=== PATIENT | female | born 1995 | race Caucasian/White ===

== ENCOUNTER 2018-06-05 13:46 | Emergency (ER) | payer MEDICAID ==
[~2018-06-05] VITALS: Ht 162.6 cm; Wt 98.9 kg
[~2018-06-05 13:46] MED LIST: CLON1 PO; Klonopin1 MG PO; LITH300C PO; LITH300ER PO; OLAN10A MM; OXCA300 PO; QUET200 PO; Seroquel50 MG PO; Zyprexa10 MG PO
[2018-06-05] MEDS ORDERED: AMIT50 PO (14:34)
[2018-06-05] MEDS ORDERED: ALPR1 PO (14:35)
[2018-06-05] MEDS ORDERED: CLARITIN10 MG PO (15:03)
[2018-06-05] MEDS ORDERED: Prednisone20 MG PO (15:03)
[2018-06-05] MEDS ORDERED: FAMO40 PO (15:03)
== END 2018-06-05 15:10 | disposition home or self-care (01) ==
LOC: ER 13:46
DX: T78.01XA Anaphylactic reaction due to peanuts, initial encounter (principal); J45.909 Unspecified asthma, uncomplicated; F17.200 Nicotine dependence, unspecified, uncomplicated; Z88.2 Allergy status to sulfonamides; Z88.1 Allergy status to other antibiotic agents; Z79.899 Other long term (current) drug therapy
CPT/HCPCS: 36415; 96374; 96375; 99283-25; J1100; J1885; J3490

== ENCOUNTER 2019-12-18 06:33 | Observation (INO) | payer MEDICARE ==
[~2019-12-18] VITALS: Ht 165.1 cm; Wt 77.1 kg
[~2019-12-18 06:33] MED LIST changes: +ALPR1 PO; +AMIT50 PO; +Amitriptyline H50 MG PO; +CLARITIN10 MG PO; +FAMO40 PO; +HYDPAM50 PO; +Lithium Carbon600 MG PO; +Prednisone20 MG PO; +Trileptal600 MG PO; +Vistaril50 MG PO; +Xanax1 MG PO
[2019-12-18 07:12] LABS: BASOPHILS ABSOLUTE AUTO 0.02 K/mm3 (0.00-0.23); BASOPHILS PERCENT AUTO 0 % (0-2); EOSINOPHILS ABSOLUTE AUTO 0.07 K/mm3 (0.00-0.68); EOSINOPHILS PERCENT AUTO 1 % (0-6); Hematocrit 45.7 % (33.0-51.0); Hemoglobin 15.3 g/dL (11.5-16.0); IMMATURE GRAN ABSOLUTE AUTO 0.02 K/mm3 (0.00-0.10); IMMATURE GRAN PERCENT AUTO 0 % (0-1); LYMPHOCYTES ABSOLUTE AUTO 2.62 K/mm3 (0.84-5.20); LYMPHOCYTES PERCENT AUTO 29 % (21-46); MONOCYTES ABSOLUTE AUTO 0.78 K/mm3 (0.16-1.47); MONOCYTES PERCENT AUTO 9 % (4-13); Mean Corpuscular HGB 31.4 pg (26.0-34.0); Mean Corpuscular HGB Conc 33.5 g/dL (31.5-36.5); Mean Corpuscular Volume 94 fL (80-100); NEUTROPHILS ABSOLUTE AUTO 5.64 K/mm3 (1.96-9.15); NEUTROPHILS PERCENT AUTO 62 % (41-73); Platelet Count 294 K/mm3 (150-400); RDW Coefficient Variation 13.1 % (11.7-14.2); RDW Standard Deviation 44.2 fL (35.1-46.3); Red Blood Cell Count 4.88 M/mm3 (3.80-5.20); White Blood Cell Count 9.15 K/mm3 (4.00-11.30)
[2019-12-18 07:21] LABS: U Amphetamine Screen Not Detected; U Barbituate Screen Not Detected; U Benzodiazapine Screen Not Detected; U Buprenorphine Screen Not Detected; U Cannabinoids Screen DETECTED; U Cocaine Screen Not Detected; U Methadone Screen Not Detected; U Methamphetamine Screen Not Detected; U Opiates Screen Not Detected; U Oxycodone Screen Not Detected; U Phencyclidine Screen Not Detected; U Propoxyphene Screen Not Detected
[2019-12-18 07:36] LABS: Alanine Aminotransfer (ALT/SGP 93 U/L (12-78); Albumin, Blood 3.8 g/dL (3.4-5.0); Albumin/Globulin Ratio 0.8 (0.8-1.8); Alk Phos 116 U/L (50-136); Anion Gap 6 mmol/L (6-16); Aspartate Aminotrans (AST/SGOT 57 U/L (12-37); Bilirubin, Total 0.3 mg/dL (0.1-1.0); Blood Urea Nitrogen 9 mg/dL (8-24); CO2, Blood 27 mmol/L (21-32); Calcium, Blood 9.1 mg/dL (8.5-10.1); Chloride, Blood 109 mmol/L (98-108); Globulin, Blood 4.8 g/dL (2.2-4.0); Glomerular Filtration Rate >60 (60-); Glucose, Blood 97 mg/dL (70-99); Sodium, Blood 142 mmol/L (136-145); Total Protein, Blood 8.6 g/dL (6.4-8.2)
[2019-12-18 07:38] LABS: Lithium <0.20 mmol/L (0.60-1.20)
[2019-12-18 10:07] LABS: Source, Urine Clean Catch
[2019-12-18 10:30] LABS: Ethanol (Alcohol), Blood, Med 206 mg/dL; Salicylate 1.7 mg/dL (2.8-20.0); Thyroxine (T4) 13.4 ug/dL (4.8-13.9)
[2019-12-18 10:36] LABS: Acetaminophen, Random <2.0 ug/mL (10.0-30.0)
[2019-12-18 10:41] LABS: Bilirubin, Urine Neg (Neg); Blood, Urine Neg (Neg); Glucose Qualitative, Urine Neg (Neg); Ketones, Urine Neg (Neg); Leukocyte Esterase, Urine Neg (Neg); Nitrite, Urine Neg (Neg); Protein, Urine 1+ (Neg); Specific Gravity, Urine 1.015 (1.003-1.022); Urobilinogen, Urine NORM (Normal)
[2019-12-18 10:47] LABS: Appearance, Urine Clear (Clear); Color, Urine Yellow (P-Yellow)
== END 2019-12-19 13:35 | disposition home or self-care (01) ==
LOC: ER 06:33 → EOR 06:34
PROVIDERS: Emergency Medicine; ADMIT Emergency Medicine
DX: F30.9 Manic episode, unspecified (principal); F25.9 Schizoaffective disorder, unspecified; F17.200 Nicotine dependence, unspecified, uncomplicated; Z91.14 Patient's other noncompliance with medication regimen; Z91.038 Other insect allergy status; Z91.010 Allergy to peanuts; Z88.2 Allergy status to sulfonamides; Z79.899 Other long term (current) drug therapy; Z88.8 Allergy status to other drugs, medicaments and biological substances
CPT/HCPCS: 36415; 80053; 80178; 81025; 84436; 84443; 85025; 96372; 99285-25; A9270; G0378; G0480; Q3014

== ENCOUNTER 2022-01-08 02:11 | Emergency (ER) | payer MEDICARE ==
[~2022-01-08] VITALS: Ht 167.6 cm; Wt 77.1 kg
[2022-01-08 03:01] LABS: Source, Urine Clean Catch
[2022-01-08 03:13] LABS: Bilirubin, Urine Neg (Neg); Blood, Urine Neg (Neg); Glucose Qualitative, Urine Neg (Neg); Ketones, Urine Neg (Neg); Leukocyte Esterase, Urine Neg (Neg); Nitrite, Urine Neg (Neg); Protein, Urine Neg (Neg); Urobilinogen, Urine NORM (Normal)
[2022-01-08 03:22] LABS: Appearance, Urine Clear (Clear); Color, Urine Yellow (P-Yellow)
[2022-01-08 03:34] LABS: U Amphetamine Screen Not Detected; U Barbituate Screen Not Detected; U Benzodiazapine Screen Not Detected; U Buprenorphine Screen Not Detected; U Cannabinoids Screen DETECTED; U Cocaine Screen Not Detected; U Methadone Screen Not Detected; U Methamphetamine Screen Not Detected; U Opiates Screen DETECTED; U Oxycodone Screen Not Detected; U Phencyclidine Screen Not Detected; U Propoxyphene Screen Not Detected
[2022-01-08 04:14] LABS: BASOPHILS ABSOLUTE AUTO 0.01 K/mm3 (0.00-0.23); BASOPHILS PERCENT AUTO 0 % (0-2); EOSINOPHILS ABSOLUTE AUTO 0.02 K/mm3 (0.00-0.68); EOSINOPHILS PERCENT AUTO 0 % (0-6); Hematocrit 41.5 % (33.0-51.0); IMMATURE GRAN ABSOLUTE AUTO 0.01 K/mm3 (0.00-0.10); IMMATURE GRAN PERCENT AUTO 0 % (0-1); LYMPHOCYTES ABSOLUTE AUTO 1.61 K/mm3 (0.84-5.20); LYMPHOCYTES PERCENT AUTO 30 % (21-46); MONOCYTES PERCENT AUTO 8 % (4-13); Mean Corpuscular HGB 30.8 pg (26.0-34.0); Mean Corpuscular HGB Conc 33.7 g/dL (31.5-36.5); Mean Corpuscular Volume 91 fL (80-100); Mean Platelet Volume 9.8 fL (9.1-12.4); NEUTROPHILS ABSOLUTE AUTO 3.29 K/mm3 (1.96-9.15); NEUTROPHILS PERCENT AUTO 62 % (41-73); Platelet Count 300 K/mm3 (150-400); RDW Coefficient Variation 12.6 % (11.7-14.2); RDW Standard Deviation 41.8 fL (35.1-46.3); Red Blood Cell Count 4.54 M/mm3 (3.80-5.20); White Blood Cell Count 5.34 K/mm3 (4.00-11.30)
[2022-01-08 04:32] LABS: Acetaminophen, Random <2.0 ug/mL (10.0-30.0); Alanine Aminotransfer (ALT/SGP 70 U/L (12-78); Albumin, Blood 3.8 g/dL (3.4-5.0); Albumin/Globulin Ratio 0.9 (0.8-1.8); Alk Phos 75 U/L (50-136); Anion Gap 10 mmol/L (6-16); Aspartate Aminotrans (AST/SGOT 29 U/L (12-37); Bilirubin, Total 0.1 mg/dL (0.1-1.0); Blood Urea Nitrogen 7 mg/dL (8-24); Bun/Creatinine Ratio 13.4 (12.0-20.0); CO2, Blood 23 mmol/L (21-32); Chloride, Blood 112 mmol/L (98-108); Creatinine, Blood 0.52 mg/dL (0.40-1.00); Ethanol (Alcohol), Blood, Med 223 mg/dL; Globulin, Blood 4.4 g/dL (2.2-4.0); Glomerular Filtration Rate >60 (60-); Glucose, Blood 107 mg/dL (70-99); Potassium, Blood 3.7 mmol/L (3.5-5.5); Salicylate 1.9 mg/dL (2.8-20.0); Sodium, Blood 145 mmol/L (136-145); Total Protein, Blood 8.2 g/dL (6.4-8.2)
[2022-01-08] MEDS ORDERED: HYDROCODONE-AC1 EAC5 PO (05:33)
[2022-01-08] MEDS ORDERED: AMOX-CLAV 500-1 EAC5 PO (05:33)
== END 2022-01-08 11:24 | disposition home or self-care (01) ==
LOC: ER 02:11
PROVIDERS: Student in an Organized Health Care Education/Training Program
DX: F10.129 Alcohol abuse with intoxication, unspecified (principal); R45.851 Suicidal ideations; Z91.010 Allergy to peanuts; F17.200 Nicotine dependence, unspecified, uncomplicated; Z79.899 Other long term (current) drug therapy; Z88.8 Allergy status to other drugs, medicaments and biological substances
CPT/HCPCS: 80053; 81003; 81025; 85025; 93005; 93010; 99285-25; A9270; G0480

== ENCOUNTER 2022-07-22 23:55 | Observation (INO) | payer MEDICARE ==
[~2022-07-22] VITALS: Ht 167.6 cm; Wt 77.1 kg
[~2022-07-22 23:55] MED LIST changes: +AMOX-CLAV 500-1 EAC5 PO; +HYDROCODONE-AC1 EAC5 PO
[2022-07-23 00:37] LABS: BASOPHILS ABSOLUTE AUTO 0.01 K/mm3 (0.00-0.23); BASOPHILS PERCENT AUTO 0 % (0-2); EOSINOPHILS ABSOLUTE AUTO 0.04 K/mm3 (0.00-0.68); EOSINOPHILS PERCENT AUTO 1 % (0-6); Hematocrit 42.7 % (33.0-51.0); Hemoglobin 14.8 g/dL (11.5-16.0); IMMATURE GRAN ABSOLUTE AUTO 0.01 K/mm3 (0.00-0.10); IMMATURE GRAN PERCENT AUTO 0 % (0-1); LYMPHOCYTES PERCENT AUTO 44 % (21-46); MONOCYTES ABSOLUTE AUTO 0.37 K/mm3 (0.16-1.47); MONOCYTES PERCENT AUTO 7 % (4-13); Mean Corpuscular HGB 31.8 pg (26.0-34.0); Mean Corpuscular HGB Conc 34.7 g/dL (31.5-36.5); Mean Corpuscular Volume 92 fL (80-100); NEUTROPHILS ABSOLUTE AUTO 2.61 K/mm3 (1.96-9.15); NEUTROPHILS PERCENT AUTO 48 % (41-73); Platelet Count 286 K/mm3 (150-400); RDW Coefficient Variation 12.5 % (11.7-14.2); RDW Standard Deviation 42.3 fL (35.1-46.3); Red Blood Cell Count 4.65 M/mm3 (3.80-5.20); White Blood Cell Count 5.44 K/mm3 (4.00-11.30)
[2022-07-23 00:46] LABS: Source, Urine Clean Catch
[2022-07-23 00:48] LABS: Bilirubin, Urine Neg (Neg); Blood, Urine Neg (Neg); Glucose Qualitative, Urine Neg (Neg); Ketones, Urine Neg (Neg); Leukocyte Esterase, Urine Neg (Neg); Nitrite, Urine Neg (Neg); Protein, Urine Neg (Neg); Urobilinogen, Urine NORM (Normal)
[2022-07-23 00:49] LABS: Appearance, Urine Clear (Clear); Color, Urine Pale Yellow (P-Yellow)
[2022-07-23 00:56] LABS: Salicylate <1.7 mg/dL (2.8-20.0)
[2022-07-23 01:01] LABS: Ethanol (Alcohol), Blood, Med 287 mg/dL
[2022-07-23 01:13] LABS: Acetaminophen, Random <2.0 ug/mL (10.0-30.0); Alanine Aminotransfer (ALT/SGP 106 U/L (12-78); Albumin, Blood 3.7 g/dL (3.4-5.0); Albumin/Globulin Ratio 0.9 (0.8-1.8); Alk Phos 94 U/L (50-136); Anion Gap 6 mmol/L (6-16); Aspartate Aminotrans (AST/SGOT 64 U/L (12-37); Bilirubin, Total <0.1 mg/dL (0.1-1.0); Blood Urea Nitrogen 10 mg/dL (8-24); Bun/Creatinine Ratio 18.2 (12.0-20.0); CO2, Blood 26 mmol/L (21-32); Calcium, Blood 8.9 mg/dL (8.5-10.1); Chloride, Blood 113 mmol/L (98-108); Creatinine, Blood 0.55 mg/dL (0.40-1.00); Globulin, Blood 4.2 g/dL (2.2-4.0); Glomerular Filtration Rate 130 (60-); Glucose, Blood 103 mg/dL (70-99); Potassium, Blood 3.7 mmol/L (3.5-5.5); Sodium, Blood 145 mmol/L (136-145); Total Protein, Blood 7.9 g/dL (6.4-8.2)
[2022-07-23 01:14] LABS: U Amphetamine Screen Not Detected; U Barbituate Screen Not Detected; U Benzodiazapine Screen Not Detected; U Buprenorphine Screen Not Detected; U Cannabinoids Screen DETECTED; U Cocaine Screen Not Detected; U Methadone Screen Not Detected; U Methamphetamine Screen Not Detected; U Opiates Screen Not Detected; U Oxycodone Screen Not Detected; U Phencyclidine Screen Not Detected; U Propoxyphene Screen Not Detected
[2022-07-23 02:03] LABS: Influenza A, PCR NEGATIVE (NEGATIVE); Influenza B, PCR NEGATIVE (NEGATIVE); Resp Syncytial Virus, PCR NEGATIVE (NEGATIVE); SARS-Cov-2 (COVID-19) PCR, MMC NEGATIVE (NEGATIVE)
== END 2022-07-23 13:14 | disposition home or self-care (01) ==
LOC: ER 23:55 → EOR 23:56
PROVIDERS: ADMIT Emergency Medicine
DX: F31.5 Bipolar disorder, current episode depressed, severe, with psychotic features (principal); F12.10 Cannabis abuse, uncomplicated; Z20.822 Contact with and (suspected) exposure to COVID-19; Z88.2 Allergy status to sulfonamides; Z91.038 Other insect allergy status; Z91.010 Allergy to peanuts; F17.210 Nicotine dependence, cigarettes, uncomplicated; F10.129 Alcohol abuse with intoxication, unspecified
CPT/HCPCS: 0241U; 80053; 81003; 81025; 85025; 86592; G0480

== ENCOUNTER 2022-09-23 18:26 | Observation (INO) | payer MEDICARE ==
[~2022-09-23] VITALS: Ht 167.6 cm; Wt 81.7 kg
[2022-09-23 19:27] LABS: Source, Urine Clean Catch
[2022-09-23 19:42] LABS: Bilirubin, Urine Neg (Neg); Blood, Urine Neg (Neg); Glucose Qualitative, Urine Neg (Neg); Ketones, Urine Neg (Neg); Leukocyte Esterase, Urine Neg (Neg); Nitrite, Urine Neg (Neg); Protein, Urine Neg (Neg); Specific Gravity, Urine 1.015 (1.003-1.022); Urobilinogen, Urine NORM (Normal)
[2022-09-23 19:48] LABS: Color, Urine Pale Yellow (P-Yellow)
[2022-09-23 19:50] LABS: Appearance, Urine Clear (Clear)
[2022-09-23 19:53] LABS: BASOPHILS PERCENT AUTO 0 % (0-2); EOSINOPHILS ABSOLUTE AUTO 0.01 K/mm3 (0.00-0.68); EOSINOPHILS PERCENT AUTO 0 % (0-6); Hematocrit 42.5 % (33.0-51.0); Hemoglobin 14.6 g/dL (11.5-16.0); IMMATURE GRAN ABSOLUTE AUTO 0.01 K/mm3 (0.00-0.10); IMMATURE GRAN PERCENT AUTO 0 % (0-1); LYMPHOCYTES ABSOLUTE AUTO 1.83 K/mm3 (0.84-5.20); LYMPHOCYTES PERCENT AUTO 45 % (21-46); MONOCYTES ABSOLUTE AUTO 0.28 K/mm3 (0.16-1.47); MONOCYTES PERCENT AUTO 7 % (4-13); Mean Corpuscular HGB 31.8 pg (26.0-34.0); Mean Corpuscular HGB Conc 34.4 g/dL (31.5-36.5); Mean Corpuscular Volume 93 fL (80-100); Mean Platelet Volume 9.9 fL (9.1-12.4); NEUTROPHILS PERCENT AUTO 47 % (41-73); Platelet Count 263 K/mm3 (150-400); RDW Coefficient Variation 12.5 % (11.7-14.2); RDW Standard Deviation 42.5 fL (35.1-46.3); Red Blood Cell Count 4.59 M/mm3 (3.80-5.20); White Blood Cell Count 4.03 K/mm3 (4.00-11.30)
[2022-09-23 20:08] LABS: Ethanol (Alcohol), Blood, Med 236 mg/dL; Salicylate <1.7 mg/dL (2.8-20.0)
[2022-09-23 20:17] LABS: U Amphetamine Screen Not Detected; U Barbituate Screen Not Detected; U Benzodiazapine Screen Not Detected; U Buprenorphine Screen Not Detected; U Cannabinoids Screen DETECTED; U Cocaine Screen Not Detected; U Methadone Screen Not Detected; U Methamphetamine Screen Not Detected; U Opiates Screen Not Detected; U Oxycodone Screen Not Detected; U Phencyclidine Screen Not Detected; U Propoxyphene Screen Not Detected
[2022-09-23 20:20] LABS: Alanine Aminotransfer (ALT/SGP 120 U/L (12-78); Albumin, Blood 3.7 g/dL (3.4-5.0); Albumin/Globulin Ratio 0.9 (0.8-1.8); Alk Phos 80 U/L (50-136); Anion Gap 5 mmol/L (6-16); Aspartate Aminotrans (AST/SGOT 41 U/L (12-37); Bilirubin, Total <0.1 mg/dL (0.1-1.0); Blood Urea Nitrogen 8 mg/dL (8-24); Bun/Creatinine Ratio 13.5 (12.0-20.0); CO2, Blood 27 mmol/L (21-32); Calcium, Blood 8.5 mg/dL (8.5-10.1); Chloride, Blood 113 mmol/L (98-108); Creatinine, Blood 0.59 mg/dL (0.40-1.00); Globulin, Blood 4.2 g/dL (2.2-4.0); Glomerular Filtration Rate 127 (60-); Glucose, Blood 104 mg/dL (70-99); Sodium, Blood 145 mmol/L (136-145); Total Protein, Blood 7.9 g/dL (6.4-8.2)
[2022-09-23 20:48] LABS: Acetaminophen, Random <2.0 ug/mL (10.0-30.0)
[2022-09-23 21:05] LABS: Influenza A, PCR NEGATIVE (NEGATIVE); Influenza B, PCR NEGATIVE (NEGATIVE); Resp Syncytial Virus, PCR NEGATIVE (NEGATIVE); SARS-Cov-2 (COVID-19) PCR, MMC NEGATIVE (NEGATIVE)
== END 2022-09-23 19:58 | disposition left against medical advice (07) ==
LOC: ER 18:26 → EOR 18:27 → UNDODEPER 09-24 19:58
PROVIDERS: ADMIT Student in an Organized Health Care Education/Training Program
DX: F31.5 Bipolar disorder, current episode depressed, severe, with psychotic features (principal); R45.851 Suicidal ideations; Z20.822 Contact with and (suspected) exposure to COVID-19; F17.210 Nicotine dependence, cigarettes, uncomplicated
CPT/HCPCS: 0241U; 36415; 80053; 81003; 81025; 85025; 93005; 93010; 99285-25; G0378; G0480

== ENCOUNTER 2023-03-03 22:53 | Observation (INO) | payer MEDICARE ==
[~2023-03-03] VITALS: Ht 167.6 cm; Wt 81.7 kg
[2023-03-03 23:13] LABS: BASOPHILS ABSOLUTE AUTO 0.01 K/mm3 (0.00-0.23); BASOPHILS PERCENT AUTO 0 % (0-2); EOSINOPHILS ABSOLUTE AUTO 0.02 K/mm3 (0.00-0.68); EOSINOPHILS PERCENT AUTO 0 % (0-6); Hematocrit 40.6 % (33.0-51.0); Hemoglobin 14.2 g/dL (11.5-16.0); IMMATURE GRAN ABSOLUTE AUTO 0.01 K/mm3 (0.00-0.10); IMMATURE GRAN PERCENT AUTO 0 % (0-1); LYMPHOCYTES ABSOLUTE AUTO 2.33 K/mm3 (0.84-5.20); LYMPHOCYTES PERCENT AUTO 33 % (21-46); MONOCYTES ABSOLUTE AUTO 0.52 K/mm3 (0.16-1.47); MONOCYTES PERCENT AUTO 7 % (4-13); Mean Corpuscular HGB 32.3 pg (26.0-34.0); Mean Corpuscular Volume 93 fL (80-100); NEUTROPHILS ABSOLUTE AUTO 4.15 K/mm3 (1.96-9.15); NEUTROPHILS PERCENT AUTO 59 % (41-73); Platelet Count 304 K/mm3 (150-400); RDW Coefficient Variation 12.4 % (11.7-14.2); RDW Standard Deviation 42.7 fL (35.1-46.3); Red Blood Cell Count 4.39 M/mm3 (3.80-5.20); White Blood Cell Count 7.04 K/mm3 (4.00-11.30)
[2023-03-03 23:28] LABS: Ethanol (Alcohol), Blood, Med 273 mg/dL; Salicylate <1.7 mg/dL (2.8-20.0)
[2023-03-03 23:31] LABS: Acetaminophen, Random <2.0 ug/mL (10.0-30.0); Alanine Aminotransfer (ALT/SGP 62 U/L (12-78); Albumin, Blood 3.6 g/dL (3.4-5.0); Albumin/Globulin Ratio 0.8 (0.8-1.8); Alk Phos 123 U/L (50-136); Anion Gap 8 mmol/L (6-16); Aspartate Aminotrans (AST/SGOT 57 U/L (12-37); Bilirubin, Total 0.3 mg/dL (0.1-1.0); Blood Urea Nitrogen 9 mg/dL (8-24); Bun/Creatinine Ratio 14.4 (12.0-20.0); CO2, Blood 24 mmol/L (21-32); Calcium, Blood 8.8 mg/dL (8.5-10.1); Chloride, Blood 112 mmol/L (98-108); Creatinine, Blood 0.63 mg/dL (0.40-1.00); Globulin, Blood 4.4 g/dL (2.2-4.0); Glomerular Filtration Rate 125 (60-); Glucose, Blood 91 mg/dL (70-99); Potassium, Blood 4.3 mmol/L (3.5-5.5); Sodium, Blood 144 mmol/L (136-145)
[2023-03-04 00:28] LABS: Source, Urine Voided
[2023-03-04 01:00] LABS: Appearance, Urine Clear (Clear); Bilirubin, Urine Neg (Neg); Blood, Urine Neg (Neg); Color, Urine Yellow (P-Yellow); Glucose Qualitative, Urine Neg (Neg); Ketones, Urine Neg (Neg); Leukocyte Esterase, Urine Neg (Neg); Nitrite, Urine Neg (Neg); Protein, Urine Neg (Neg); Specific Gravity, Urine 1.015 (1.003-1.022); Urobilinogen, Urine NORM (Normal)
[2023-03-04 01:14] LABS: Influenza A, PCR NEGATIVE (NEGATIVE); Influenza B, PCR NEGATIVE (NEGATIVE); Resp Syncytial Virus, PCR NEGATIVE (NEGATIVE); SARS-Cov-2 (COVID-19) PCR, MMC NEGATIVE (NEGATIVE)
[2023-03-04 01:15] LABS: U Amphetamine Screen Not Detected; U Barbituate Screen Not Detected; U Benzodiazapine Screen Not Detected; U Buprenorphine Screen Not Detected; U Cannabinoids Screen DETECTED; U Cocaine Screen Not Detected; U Methadone Screen Not Detected; U Methamphetamine Screen Not Detected; U Opiates Screen Not Detected; U Oxycodone Screen Not Detected; U Phencyclidine Screen Not Detected; U Propoxyphene Screen Not Detected
[2023-03-04 19:01] VITALS: BP 117/72
== END 2023-03-05 04:08 ==
LOC: ER 22:53 → EOR 23:02
PROVIDERS: ADMIT Emergency Medicine
DX: T43.212A Poisoning by selective serotonin and norepinephrine reuptake inhibitors, intentional self-harm, initial encounter (principal); T51.0X2A Toxic effect of ethanol, intentional self-harm, initial encounter; F17.210 Nicotine dependence, cigarettes, uncomplicated; F33.3 Major depressive disorder, recurrent, severe with psychotic symptoms; F43.10 Post-traumatic stress disorder, unspecified; Z88.2 Allergy status to sulfonamides; F10.90 Alcohol use, unspecified, uncomplicated
CPT/HCPCS: 0241U; 80053; 81003; 81025; 85025; 86592; 93005; 93010; 99285-25; A9270; G0378; G0480; J7030; Q3014

== ENCOUNTER 2023-05-13 22:48 | Observation (INO) | payer MEDICARE, OTHER ==
[~2023-05-13] VITALS: Ht 167.6 cm; Wt 81.7 kg
[2023-05-13 23:31] LABS: BASOPHILS ABSOLUTE AUTO 0.01 K/mm3 (0.00-0.23); BASOPHILS PERCENT AUTO 0 % (0-2); EOSINOPHILS ABSOLUTE AUTO 0.01 K/mm3 (0.00-0.68); EOSINOPHILS PERCENT AUTO 0 % (0-6); Hematocrit 38.3 % (33.0-51.0); Hemoglobin 13.8 g/dL (11.5-16.0); IMMATURE GRAN ABSOLUTE AUTO 0.01 K/mm3 (0.00-0.10); IMMATURE GRAN PERCENT AUTO 0 % (0-1); LYMPHOCYTES ABSOLUTE AUTO 2.67 K/mm3 (0.84-5.20); LYMPHOCYTES PERCENT AUTO 44 % (21-46); MONOCYTES ABSOLUTE AUTO 0.44 K/mm3 (0.16-1.47); MONOCYTES PERCENT AUTO 7 % (4-13); Mean Corpuscular HGB 32.5 pg (26.0-34.0); Mean Corpuscular Volume 90 fL (80-100); Mean Platelet Volume 9.7 fL (9.1-12.4); NEUTROPHILS ABSOLUTE AUTO 2.92 K/mm3 (1.96-9.15); NEUTROPHILS PERCENT AUTO 48 % (41-73); Platelet Count 289 K/mm3 (150-400); RDW Coefficient Variation 11.9 % (11.7-14.2); RDW Standard Deviation 38.7 fL (35.1-46.3); Red Blood Cell Count 4.25 M/mm3 (3.80-5.20); White Blood Cell Count 6.06 K/mm3 (4.00-11.30)
[2023-05-13 23:49] LABS: U Amphetamine Screen Not Detected; U Barbituate Screen Not Detected; U Benzodiazapine Screen Not Detected; U Buprenorphine Screen Not Detected; U Cannabinoids Screen DETECTED; U Cocaine Screen Not Detected; U Methadone Screen Not Detected; U Methamphetamine Screen Not Detected; U Opiates Screen Not Detected; U Oxycodone Screen Not Detected; U Phencyclidine Screen Not Detected; U Propoxyphene Screen Not Detected
[2023-05-13 23:54] LABS: Ethanol (Alcohol), Blood, Med 265 mg/dL; Free Thyroxine 1.22 ng/dL (0.70-1.60); Salicylate <1.7 mg/dL (2.8-20.0)
[2023-05-13 23:57] LABS: Alanine Aminotransfer (ALT/SGP 59 U/L (12-78); Albumin, Blood 3.6 g/dL (3.4-5.0); Albumin/Globulin Ratio 0.8 (0.8-1.8); Alk Phos 93 U/L (50-136); Anion Gap 7 mmol/L (6-16); Aspartate Aminotrans (AST/SGOT 41 U/L (12-37); Bilirubin, Total 0.1 mg/dL (0.1-1.0); Blood Urea Nitrogen 9 mg/dL (8-24); Bun/Creatinine Ratio 14.7 (12.0-20.0); CO2, Blood 24 mmol/L (21-32); Calcium, Blood 8.9 mg/dL (8.5-10.1); Chloride, Blood 111 mmol/L (98-108); Creatinine, Blood 0.61 mg/dL (0.40-1.00); Globulin, Blood 4.3 g/dL (2.2-4.0); Glomerular Filtration Rate 126 (60-); Glucose, Blood 102 mg/dL (70-99); Potassium, Blood 3.3 mmol/L (3.5-5.5); Sodium, Blood 142 mmol/L (136-145); Total Protein, Blood 7.9 g/dL (6.4-8.2)
[2023-05-14 00:03] LABS: Acetaminophen, Random <2.0 ug/mL (10.0-30.0)
[2023-05-15 12:56] VITALS: BP 105/68
[2023-05-15] MEDS ORDERED: QUET100 PO (18:57)
[2023-05-15] MEDS ORDERED: TRAZ100 PO (18:57)
[2023-05-15] MEDS ORDERED: HYDHCL25 PO (18:57)
== END 2023-05-15 19:15 | disposition home or self-care (01) ==
LOC: ER 22:48 → EOR 22:50 → ER 05-14 00:56 → EOR 05-14 00:56
PROVIDERS: ADMIT Emergency Medicine
DX: F31.5 Bipolar disorder, current episode depressed, severe, with psychotic features (principal); F12.10 Cannabis abuse, uncomplicated; F17.210 Nicotine dependence, cigarettes, uncomplicated; Z88.1 Allergy status to other antibiotic agents
CPT/HCPCS: 12002; 80053; 81025; 84439; 84443; 85025; 96361-59; 96374-59; 99285-25; A9270; G0378; G0480; J2060; J7030; Q0177

== ENCOUNTER 2023-09-16 21:58 | Inpatient (IN) | payer MEDICARE, OTHER ==
[~2023-09-16] VITALS: Ht 167.6 cm; Wt 53.5 kg
[~2023-09-16 21:58] MED LIST changes: +HYDHCL25 PO; +QUET100 PO; +TRAZ100 PO
[2023-09-16 22:52] LABS: Hematocrit 41.6 % (33.0-51.0); Hemoglobin 14.3 g/dL (11.5-16.0); Mean Corpuscular HGB 31.4 pg (26.0-34.0); Mean Corpuscular HGB Conc 34.4 g/dL (31.5-36.5); Mean Corpuscular Volume 91 fL (80-100); Mean Platelet Volume 9.6 fL (9.1-12.4); Platelet Count 280 K/mm3 (150-400); RDW Coefficient Variation 13.4 % (11.7-14.2); RDW Standard Deviation 45.2 fL (35.1-46.3); Red Blood Cell Count 4.55 M/mm3 (3.80-5.20); White Blood Cell Count 6.02 K/mm3 (4.00-11.30)
[2023-09-16 23:10] LABS: Magnesium, Blood 2.5 mg/dL (1.6-2.4); Salicylate <1.7 mg/dL (2.8-20.0)
[2023-09-16 23:43] LABS: BASOPHILS PERCENT MAN 0 % (0-2); EOSINOPHILS PERCENT MAN 0 % (0-6); LYMPHOCYTES % ATYPICAL MANUAL 1 % (0-0); LYMPHOCYTES ABSOLUTE MAN 3.73 K/mm3 (0.84-5.20); LYMPHOCYTES PERCENT MAN 61 % (21-46); MONOCYTES ABSOLUTE MAN 0.36 K/mm3 (0.16-1.47); MONOCYTES PERCENT MAN 6 % (4-13); NEUTROPHILS ABSOLUTE MAN 1.92 K/mm3 (1.96-9.15); SEG NEUTROPHILS PERCENT MAN 32 % (41-73); TOTAL CELLS COUNTED 100
[2023-09-16 23:54] LABS: Ethanol (Alcohol), Blood, Med 294 mg/dL
[2023-09-16 23:55] LABS: Alanine Aminotransfer (ALT/SGP 60 U/L (12-78); Albumin, Blood 3.5 g/dL (3.4-5.0); Albumin/Globulin Ratio 0.8 (0.8-1.8); Alk Phos 105 U/L (50-136); Anion Gap 6 mmol/L (6-16); Aspartate Aminotrans (AST/SGOT 41 U/L (12-37); Bilirubin, Total <0.1 mg/dL (0.1-1.0); Blood Urea Nitrogen 8 mg/dL (8-24); Bun/Creatinine Ratio 11.6 (12.0-20.0); CO2, Blood 27 mmol/L (21-32); Calcium, Blood 8.6 mg/dL (8.5-10.1); Chloride, Blood 110 mmol/L (98-108); Creatinine, Blood 0.69 mg/dL (0.40-1.00); Globulin, Blood 4.6 g/dL (2.2-4.0); Glomerular Filtration Rate 121 (60-); Glucose, Blood 103 mg/dL (70-99); Potassium, Blood 3.7 mmol/L (3.5-5.5); Sodium, Blood 143 mmol/L (136-145); Total Protein, Blood 8.1 g/dL (6.4-8.2)
[2023-09-16 23:56] LABS: Acetaminophen, Random <2.0 ug/mL (10.0-30.0)
[2023-09-17] VITALS (15 sets, daily range): BP systolic 89–118; BP diastolic 48–76
[2023-09-17 00:11] LABS: Beta HCG, Quantitative, Serum <1 mIU/mL (0-3)
[2023-09-17 02:51] LABS: Source, Urine Straight Cath
[2023-09-17 03:11] LABS: U Amphetamine Screen DETECTED; U Cocaine Screen DETECTED; U Methamphetamine Screen DETECTED
[2023-09-17 03:12] LABS: U Barbituate Screen Not Detected; U Benzodiazapine Screen DETECTED; U Buprenorphine Screen Not Detected; U Cannabinoids Screen Not Detected; U Methadone Screen Not Detected; U Opiates Screen Not Detected; U Oxycodone Screen Not Detected; U Phencyclidine Screen Not Detected
[2023-09-17 03:16] LABS: Bilirubin, Urine Neg (Neg); Blood, Urine Neg (Neg); Glucose Qualitative, Urine Neg (Neg); Ketones, Urine Neg (Neg); Leukocyte Esterase, Urine Neg (Neg); Nitrite, Urine Neg (Neg); Protein, Urine Neg (Neg); Urobilinogen, Urine NORM (Normal)
[2023-09-17 03:18] LABS: Appearance, Urine Clear (Clear); Color, Urine Pale Yellow (P-Yellow)
[2023-09-17 06:57] LABS: Albumin, Blood 3.3 g/dL (3.4-5.0); Albumin/Globulin Ratio 0.8 (0.8-1.8); Bilirubin, Total 0.2 mg/dL (0.1-1.0); Bun/Creatinine Ratio 15.8 (12.0-20.0); Calcium, Blood 8.2 mg/dL (8.5-10.1); Creatinine, Blood 0.57 mg/dL (0.40-1.00); Globulin, Blood 4.3 g/dL (2.2-4.0); Total Protein, Blood 7.6 g/dL (6.4-8.2)
--- NOTE | 2023-09-17 08:14 | NUR ---
PT ARRIVES TO ICU 3 FROM ER AT 0752. PT IS RESTING WITH EYE'S CLOSED BUT ANSWERS QUESTIONS APPROPRIATELY. REFUSES LAB DRAW AT THIS MOMENT. LEVOPHED TURNED OFF ON ARRIVAL TO UNIT. IVF RUNNING. PT DENIES SUICIDAL IDEATION. 1:1 SITTER PRESENT. NO SIGN OF DISTRESS.
[2023-09-17 10:05] LABS: Base Excess Venous 0.9 mmol/L; PCO2 Venous 39.3 mmHg (38-42); pH Blood Venous 7.42 (7.34-7.37)
[2023-09-17 10:17] LABS: BASOPHILS ABSOLUTE AUTO 0.01 K/mm3 (0.00-0.23); BASOPHILS PERCENT AUTO 0 % (0-2); EOSINOPHILS ABSOLUTE AUTO 0.03 K/mm3 (0.00-0.68); EOSINOPHILS PERCENT AUTO 1 % (0-6); Hemoglobin 12.4 g/dL (11.5-16.0); IMMATURE GRAN ABSOLUTE AUTO 0.01 K/mm3 (0.00-0.10); IMMATURE GRAN PERCENT AUTO 0 % (0-1); LYMPHOCYTES ABSOLUTE AUTO 2.09 K/mm3 (0.84-5.20); LYMPHOCYTES PERCENT AUTO 44 % (21-46); MONOCYTES ABSOLUTE AUTO 0.51 K/mm3 (0.16-1.47); MONOCYTES PERCENT AUTO 11 % (4-13); Mean Corpuscular HGB 31.6 pg (26.0-34.0); Mean Corpuscular HGB Conc 34.4 g/dL (31.5-36.5); Mean Corpuscular Volume 92 fL (80-100); Mean Platelet Volume 9.1 fL (9.1-12.4); NEUTROPHILS ABSOLUTE AUTO 2.16 K/mm3 (1.96-9.15); NEUTROPHILS PERCENT AUTO 45 % (41-73); Platelet Count 243 K/mm3 (150-400); RDW Coefficient Variation 13.4 % (11.7-14.2); RDW Standard Deviation 45.7 fL (35.1-46.3); Red Blood Cell Count 3.93 M/mm3 (3.80-5.20); White Blood Cell Count 4.81 K/mm3 (4.00-11.30)
[2023-09-17 15:06] LABS: Bun/Creatinine Ratio 13.7 (12.0-20.0); Creatinine, Blood 0.58 mg/dL (0.40-1.00); Potassium, Blood 3.8 mmol/L (3.5-5.5)
[2023-09-17 15:34] LABS: Albumin, Blood 2.9 g/dL (3.4-5.0); Albumin/Globulin Ratio 0.8 (0.8-1.8); Bilirubin, Direct 0.1 mg/dL (0.0-0.3); Bilirubin, Indirect 0.2 mg/dL (0.1-0.7); Bilirubin, Total 0.3 mg/dL (0.1-1.0); Globulin, Blood 3.7 g/dL (2.2-4.0); Total Protein, Blood 6.6 g/dL (6.4-8.2)
--- NOTE | 2023-09-17 17:15 | NUR ---
Update provided to [facility] from [facility] Control. No new recommendations received. They will call back tomorrow morning to see how the patient is doing.
--- NOTE | 2023-09-17 17:56 | NUR ---
SUMMARY PT RESTING IN BED. DENIES SUICIDAL IDEATION TODAY. INDEP OOB TO BATHROOM. 1:1 SITTER AND PT PLACED ON HOLD BY DR. POLLACK. PT HAS BEEN PLEASANT AND COOPERATIVE WHILE IN THE ICU. OFF LEVOPHED SINCE ARRIVAL TO ICU THIS AM. N/V A COUPLE TIMES, ZOFRAN GIVEN. PT EXHIBITING MILD SIGNS OF WITHDRAWL, MEDICATED PER CIWA. STATUS CHANGED TO MEDICAL, WILL BE TRANSFERING TO ROOM 353.
[2023-09-17] MEDS ORDERED: VRAYLAR3 MG PO (20:37)
[2023-09-17] MEDS ORDERED: LORA1 PO (20:38)
[2023-09-17] MEDS ORDERED: Hydroxyzine HCl50 MG PO (20:39)
[2023-09-18 03:51] VITALS: BP 92/47
[2023-09-18 06:52] LABS: Bun/Creatinine Ratio 12.8 (12.0-20.0); Calcium, Blood 8.4 mg/dL (8.5-10.1); Creatinine, Blood 0.7 mg/dL (0.40-1.00); Potassium, Blood 3.2 mmol/L (3.5-5.5)
[2023-09-18 08:09] VITALS: BP 90/61
[2023-09-18 12:50] VITALS: BP 105/59
[2023-09-18 14:58] VITALS: BP 115/69
--- NOTE | 2023-09-18 18:12 | NUR ---
SUMMARY- PT'S CIWA'S RANGED FROM 11-19 THIS SHIFT. ATIVAN AND LIBRIUM PO HELPED WITH DT. PT HAD COMPLAINTS OF HUYNH PAIN. TYLENOL HELPED. SBA TO BATHROOM. 1:1 SITTER IN ROOM W/PT. PT CALM AND COOPERATIVE MOST OF THE SHIFT. PT DENIED ANY THOUGHTS OF SI.
[2023-09-18 19:23] VITALS: BP 120/81
[2023-09-19 04:31] VITALS: BP 123/74
[2023-09-19 05:44] LABS: Hematocrit 36.5 % (33.0-51.0); Hemoglobin 12.6 g/dL (11.5-16.0); Mean Corpuscular HGB 31.5 pg (26.0-34.0); Mean Corpuscular HGB Conc 34.5 g/dL (31.5-36.5); Mean Corpuscular Volume 91 fL (80-100); Mean Platelet Volume 9.7 fL (9.1-12.4); Platelet Count 243 K/mm3 (150-400); RDW Coefficient Variation 12.9 % (11.7-14.2); RDW Standard Deviation 43.7 fL (35.1-46.3); White Blood Cell Count 4.22 K/mm3 (4.00-11.30)
[2023-09-19 06:11] LABS: Albumin, Blood 2.8 g/dL (3.4-5.0); Anion Gap 4 mmol/L (6-16); Blood Urea Nitrogen 7 mg/dL (8-24); Bun/Creatinine Ratio 10.9 (12.0-20.0); CO2, Blood 28 mmol/L (21-32); Calcium, Blood 8.6 mg/dL (8.5-10.1); Chloride, Blood 107 mmol/L (98-108); Creatinine, Blood 0.65 mg/dL (0.40-1.00); Glomerular Filtration Rate 123 (60-); Glucose, Blood 115 mg/dL (70-99); Magnesium, Blood 2.2 mg/dL (1.6-2.4); Phosphorus, Blood 3.5 mg/dL (2.5-4.9); Sodium, Blood 139 mmol/L (136-145)
--- NOTE | 2023-09-19 06:23 | NUR ---
SUMMARY: PT A/OX4, CALLS APPROPRIATELY TO SPECIFY NEEDS AND IS PLEASANT AND COOPERATIVE W/CARE. SHE CONT'S ON HIGH SI MONITORING W/1:1 SITTER. CIWA'S ARE 12-14 AND SHE REMAINS TREMULOUS, C/O MILD NAUSEA, ANXIETY AND OCC. SEES BLACK SPOTS. PRN LIBRIUM, ATIVAN AND ATARAX RECIEVED PER EMAR AND TYLENOL PROVIDED FOR TOLERABLE RELIEF OF HUYNH + TOOTH PAIN. NO ACUTE CHANGES. VSS/AFEBRILE AND SHE'S NSR AT 80'S-90'S ON TELE. WCTM AND REPORT TO DAY RN.
[2023-09-19 07:30] VITALS: BP 112/77
[2023-09-19 15:29] VITALS: BP 111/81
--- NOTE | 2023-09-19 18:13 | NUR ---
SUMMARY- NO ACUTE EVENTS THIS SHIFT. PT'S CIWA'S HAVE RANGED FROM 11-15 THIS SHIFT. PT'S DT HAS BEEN WELL CONTROLLED WITH ATIVAN AND LIBRIUM PER EMAR. PT CALM AND COOPERATIVE.
--- NOTE | 2023-09-19 18:19 | NUR ---
PHONE VERBAL FROM DR. GUERRERO TO HAVE NO IV ORDER AND TO DC IV ZOFRAN AND IV ATIVAN.
[2023-09-19 19:55] VITALS: BP 100/62
--- NOTE | 2023-09-20 01:40 | NUR ---
2300 pt sleeping soundly, not seeming to be in discomfort. did not awaken for ciwa check at this time. call light in reach.
--- NOTE | 2023-09-20 04:09 | NUR ---
SHIFT SUMMERY, PT RESTING IN BED, PT HAS SITTER AT BEDSIDE. PT MEDICATED FOR CIWAS SEVERAL TIMES THIS NIGHT . THE LAS 4 HRS PT SLEEPING VERY WELL RESPERATIONS EVEN AND UNLABORED BUT PT NOT AWAKING WHEN JUST SPOKEN TO. WILL DO CIWA WHEN PT MORE AWAKE. PT HAD C/O BEING NAUSEATED ANABELLA SL ORDER WAS OBTAINED FROM HOSPITALIST. PT WAS VERY TREMULUS AND LIGHT AND SOUND SENSITIVE, PT WA ALSO HAVING SENSATIVITY TO SKIN PRIKLY PINS AND NEEDLE FEELING. NO STATEMENT OF SUICIDLE INTENTIONS THIS SHIFT. SITTER AT BEDSIDE.
[2023-09-20 04:20] VITALS: BP 111/75
[2023-09-20 08:16] VITALS: BP 121/74
--- NOTE | 2023-09-20 08:35 | NUR ---
VERBAL FROM DR. GUERRERO TO DC TELE AND AERIAL CROP DUSTER ORDER.
[2023-09-20 16:10] VITALS: BP 108/68
--- NOTE | 2023-09-20 17:53 | NUR ---
SUMMARY- NO ACUTE EVENTS THIS SHIFT. CIWA X1 THIS SHIFT = 14. PT CALM AND COOPERATIVE. DT STEADILY. SBA. 1:1 SITTER. AAOX4.
[2023-09-20 20:00] VITALS: BP 106/68
--- NOTE | 2023-09-21 04:56 | NUR ---
JOVANY PAULA. PT RESTING IN BED, SITTER AT BEDSIDE. PT ABLE TO GET UP TO BR WITH OUT ASSISTANCE. PT SEEMS TO BE DOING BETTER TONIGHT. SO FAR PT MANOJ NEEDING TO BE MEDICATED X 1. PT CONTINUES TO SLEEP PT SEEMED LESS SHAKY, AND ANXIETY LESS WELL VISUAL AND ODITORY IRRITATION.
[2023-09-21 06:00] VITALS: BP 116/73
--- NOTE | 2023-09-21 06:26 | NUR ---
PT CONTINUES TO SLEEP , VITALS WERE TAKEN AND BLOOD DRAWN. PT BACK TO SLEEP. PT APPEARS COMFORTABLE RESPERATIONS EVEN AND UNLABORED PT SEEMS RELAXED AT THIS TIME. SITTER AT BEDSIDE.
[2023-09-21 06:38] LABS: Hematocrit 37.7 % (33.0-51.0); Hemoglobin 13.2 g/dL (11.5-16.0); Mean Corpuscular HGB 31.6 pg (26.0-34.0); Mean Corpuscular Volume 90 fL (80-100); Mean Platelet Volume 9.9 fL (9.1-12.4); Platelet Count 257 K/mm3 (150-400); RDW Standard Deviation 42.6 fL (35.1-46.3); Red Blood Cell Count 4.18 M/mm3 (3.80-5.20); White Blood Cell Count 5.26 K/mm3 (4.00-11.30)
[2023-09-21 06:55] LABS: Albumin, Blood 3.1 g/dL (3.4-5.0); Anion Gap 4 mmol/L (6-16); Blood Urea Nitrogen 14 mg/dL (8-24); Bun/Creatinine Ratio 23.7 (12.0-20.0); CO2, Blood 26 mmol/L (21-32); Calcium, Blood 8.7 mg/dL (8.5-10.1); Chloride, Blood 106 mmol/L (98-108); Creatinine, Blood 0.59 mg/dL (0.40-1.00); Glomerular Filtration Rate 126 (60-); Glucose, Blood 122 mg/dL (70-99); Magnesium, Blood 1.9 mg/dL (1.6-2.4); Phosphorus, Blood 3.8 mg/dL (2.5-4.9); Potassium, Blood 3.8 mmol/L (3.5-5.5); Sodium, Blood 136 mmol/L (136-145)
[2023-09-21 07:41] VITALS: BP 107/64
[2023-09-21 13:29] VITALS: BP 107/64
[2023-09-21 15:28] VITALS: BP 105/63
--- NOTE | 2023-09-21 17:40 | NUR ---
PATIENT D/C'D WITH SECURED TRANSPORT TO [facility]. REPORT CALLED TO CARMEN ROMO TODAY. BELONGINGS AND TRANSPORT PACKET GIVEN TO SENIOR TECHNICAL PROGRAM MANAGER. PATIENT DENIES ANY FURTHER QUESTIONS OR CONCERNS. FAMILY AT BEDSIDE PRIOR TO TRANSPORT AND ARE AWARE OF WHERE THE PATIENT WAS TRANSPORTED TO.
== END 2023-09-21 17:55 | DRG 918 ==
LOC: ER 21:58 → ICUE 21:59 → MEDS 21:59 → ICUE 09-17 07:27 → MEDS 09-17 18:23
PROVIDERS: Internal Medicine; Student in an Organized Health Care Education/Training Program; ADMIT Internal Medicine
DX: T43.212A Poisoning by selective serotonin and norepinephrine reuptake inhibitors, intentional self-harm, initial encounter (principal); F10.239 Alcohol dependence with withdrawal, unspecified; R57.9 Shock, unspecified; T43.592A Poisoning by other antipsychotics and neuroleptics, intentional self-harm, initial encounter; T42.4X2A Poisoning by benzodiazepines, intentional self-harm, initial encounter; Y90.8 Blood alcohol level of 240 mg/100 ml or more; F17.210 Nicotine dependence, cigarettes, uncomplicated
CPT/HCPCS: 36415; 80048; 80053; 80069; 80076; 81003; 81025; 82803; 83605; 83735; 84702; 85025; 85027; 93005; 93010; 94760; 94762; 96361; 96365; 96366; 96367; 96368; 96372; 96375; 96376; 99285-25; A9270; G0378; G0480; J1650; J1790; J2405; J3411; J7030; J7060; J7120

== ENCOUNTER → 2024-08-18 | Outpatient (CLI) | payer MEDICARE, OTHER ==
[~2024-08-18] MED LIST changes: +Hydroxyzine HCl50 MG PO; +LORA1 PO; +VRAYLAR3 MG PO
[2024-08-29 11:01] LABS: HPV GENOTYPE 16 BY TMA Not Detected; HPV GENOTYPE 18/45 BY TMA Not Detected; HPV HIGH RISK BY TMA Detected; HPV SOURCE Cervical; HPVG SOURCE Cervical
== END ==
LOC: LAB SHORT 17:22 → LAB 17:22
PROVIDERS: Registered Nurse
DX: Z01.419 Encounter for gynecological examination (general) (routine) without abnormal findings (principal)
CPT/HCPCS: 87624; 87625; G0123